=== PATIENT | male | born 1960 | race Caucasian/White ===

== ENCOUNTER → 2024-11-10 | Outpatient (CLI) | payer BC, SELFPAY ==
[2024-11-10 10:35] LABS: Collection Type, Urine Clean Catch
[2024-11-10 11:06] LABS: Basophils % (Auto) 1 % (0-2.5); Eosinophils # (Auto) 0.3 Thou/mm3 (0.0-0.5); Eosinophils % (Auto) 4 % (0-10); Hematocrit 44.8 % (41.0-53.0); Hemoglobin 14.7 g/dL (13.5-16.0); Immature Granulocytes % (Auto) 0 % (0-0); Immature Granulocytes Auto 0.03 Thou/mm3 (0.00-0.00); Lymphocytes % (Auto) 29 % (10-50); Mean Corpuscular HGB Conc 32.8 g/dl (31.0-37.0); Mean Corpuscular Hemoglobin 28.1 pg (25.0-35.0); Mean Corpuscular Volume 86 fL (80-100); Monocytes # (Auto) 0.7 Thou/mm3 (0.0-0.8); Monocytes % (Auto) 10 % (0-12); Neutrophils # (Auto) 3.9 Thou/mm3 (1.8-7.7); Neutrophils % (Auto) 56 % (37-80); Nucleated Red Blood Cell % 0 /100 WBC (0); Platelet Count 293 Thou/mm3 (140-440); RDW Standard Deviation 40.6 fL (35.1-43.9); Red Blood Count 5.23 Miln/mm3 (4.50-5.90)
[2024-11-10 11:15] LABS: Glucose Estimated Average 134 mg/dL (80-131); Hemoglobin A1C 6.3 % Hgb (4.8-6.0)
[2024-11-10 11:17] LABS: Prostate Specific Antigen 1.01 ng/mL (0-4.00)
[2024-11-10 11:20] LABS: Bilirubin,Urine Negative (Negative); Blood,Urine Negative (Negative); Clarity,Urine Clear (Clear/Hazy); Color,Urine Colorless (Lt Yel-Yel); Culture Indicated,Urine Not Indicated; Glucose, Urine Negative (Negative); Ketones,Urine Negative (Negative); Leukocyte Esterase,Urine Negative (Negative); Nitrite,Urine Negative (Negative); PH,Urine 6.5 (5.0-7.0); Protein,Urine Negative (Neg - Trace); RBC,Urine 1 /hpf (0-3); Specific Gravity,Urine 1.006 (1.001-1.035); Squamous Epithelial Cell,Urine < 1 /hpf (0-5); Urobilinogen,Urine Negative mg/dL (0.0-1.0); WBC,Urine < 1 /hpf (0-5)
[2024-11-10 11:21] LABS: Alanine Aminotransferase 23 U/L (10-49); Albumin, Serum 4.7 gm/dL (3.4-4.8); Alkaline Phosphatase 107 U/L (46-116); Anion Gap 6 (7-16); Aspartate Amino Transferase 23 U/L (0-34); BUN/Creatinine Ratio 9 Ratio (12-20); Bilirubin,Total 0.5 mg/dL (0.3-1.2); Blood Urea Nitrogen 10 mg/dL (9-23); Calcium 9.9 mg/dL (8.3-10.6); Calcium (Corrected) 9.9 mg/dL (8.5-10.1); Carbon Dioxide 29.6 mMol/L (20.0-31.0); Cardiac Risk Estimate 6.1 RATIO (4.0-6.7); Chloride 104 mMol/L (98-107); Cholesterol 238 mg/dL (132-200); Creatinine (Component) 1.1 mg/dL (0.6-1.3); Globulin 2.3 gm/dL (2.3-3.5); Glucose 108 mg/dL (74-106); HDL Cholesterol 39 mg/dL (40-60); LDL Cholesterol,Calculated 149 mg/dL (0-130); Osmolality,Calculated 279 (275-295); Potassium 4.6 mMol/L (3.4-5.1); Sodium 140 mMol/L (136-145); Thyroid Stimulating Hormone 2.63 uIU/mL (0.55-4.78); Triglycerides 252 mg/dL (30-150); eGFR > 60 See Note
== END | disposition home or self-care (01) ==
LOC: COPL 09:33
PROVIDERS: PCP Nurse Practitioner Family; Referring Provider Nurse Practitioner Family; Visit Provider Nurse Practitioner Family
DX: Z00.00 Encounter for general adult medical examination without abnormal findings (principal); N52.9 Male erectile dysfunction, unspecified
CPT/HCPCS: 36415; 80053; 80061; 81001; 83036; 84153; 84443; 85025

== ENCOUNTER → 2025-07-18 | Outpatient (CLI) | payer BC, SELFPAY ==
[2025-07-18 08:39] LABS: Glucose Estimated Average 140 mg/dL (80-131); Hemoglobin A1C 6.5 % Hgb (4.8-6.0)
[2025-07-18 08:53] LABS: Alanine Aminotransferase 28 U/L (10-49); Albumin, Serum 4.9 gm/dL (3.4-4.8); Albumin/Globulin Ratio 2.6 (1.2-2.2); Alkaline Phosphatase 102 U/L (46-116); Anion Gap 10 (7-16); Aspartate Amino Transferase 25 U/L (0-34); BUN/Creatinine Ratio 11 Ratio (12-20); Bilirubin,Total 0.6 mg/dL (0.3-1.2); Blood Urea Nitrogen 11 mg/dL (9-23); Calcium 9.7 mg/dL (8.3-10.6); Calcium (Corrected) 9.7 mg/dL (8.5-10.1); Carbon Dioxide 28.3 mMol/L (20.0-31.0); Cardiac Risk Estimate 5.7 RATIO (4.0-6.7); Chloride 102 mMol/L (98-107); Cholesterol 217 mg/dL (132-200); Creatinine (Component) 1.0 mg/dL (0.6-1.3); Globulin 1.9 gm/dL (2.3-3.5); Glucose 120 mg/dL (74-106); HDL Cholesterol 38 mg/dL (40-60); LDL Cholesterol,Calculated 108 mg/dL (0-130); Osmolality,Calculated 279 (275-295); Potassium 4.5 mMol/L (3.4-5.1); Sodium 140 mMol/L (136-145); Total Protein 6.8 gm/dL (5.7-8.2); Triglycerides 355 mg/dL (30-150); eGFR > 60 See Note
== END | disposition home or self-care (01) ==
LOC: COPL 07:29
PROVIDERS: PCP Family Medicine; Referring Provider Nurse Practitioner Family; Visit Provider Nurse Practitioner Family
DX: E78.2 Mixed hyperlipidemia (principal); R73.03 Prediabetes
CPT/HCPCS: 36415; 80053; 80061; 83036